=== PATIENT | male | born 2005 | race American Indian/Alaskan Native ===

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

== ENCOUNTER 2023-04-12 16:47 | Emergency (ER) | payer OTHER ==
[~2023-04-12] VITALS: Ht 172.7 cm; Wt 61.2 kg
== END 2023-04-12 21:08 | disposition home or self-care (01) ==
LOC: ER 16:47 → EMR PED 16:56 → ER 16:56 → EMR PED 21:08
DX: B34.9 Viral infection, unspecified (principal); Z20.822 Contact with and (suspected) exposure to COVID-19